=== PATIENT | female | born 1990 ===

== ENCOUNTER 2016-10-04 11:25 | Inpatient (IN) | payer MEDICAID, SELFPAY ==
[2016-10-04 11:44] VITALS: BMI 35.9
[2016-10-04] MEDS: Lactated Ringer's 1,000 ML IV SCH ×2 (12:15→18:02)
--- NOTE | 2016-10-04 12:30 | OBHP ---
Datetime: 10/04/2016 12:29 Admit Comment, IP Provider: Pt is a 26yo edc 10/18 by 12wk who was referred to by Dr. Baird of [facility] for admission for induction for Cholestasis of Preg. Dr. Larry thapa had reviewed pt's hx and labs with dr. maciel who advised for admission for induction today. Pt c/o hand and feet pruritus x2wks and labs from 10/01 show AST 75 and ALT 149. She denies h/a, scotomata, ruq pain, blurred va, n/v, ruq pain. OB hx sig for uti in preg an PMHX _ PSHX: DENIES MEDIC: PNV ALLERG: PNC- rahs SHX: DENIES etoh, illicit drugs or tobacco I: 38 wks Cholestasis of Preg P: admit for induction with cervidel cmp, cbc, ua, ldh induct procedure d/w pt _ fob as well as indic for . Datetime: 10/04/2016 12:15 IP Adm Impression: Term, intrauterine IP Admit Plan: Admit to unit; Initiate labor induction protocol Pelvic Type - PN: Adequate Extremities - PN: Normal Abdomen - PN: Normal Back - PN: Normal Lungs - PN: Normal Heart - PN: Normal Neurologic - PN: Normal HEENT - PN: Normal General - PN: Normal Presentation-Admit: Vertex FHR - Baseline A Provider: 140 Membranes, Provider: Intact Comments, ACOG Physical Exam: ri-ni bedside us: vtx presentation EGA AdmitDate IP: 38.0 Vital Signs Provider: Reviewed IP Chief Complaint: Other NICHD Variability Prov Fetus A: Minimal - Undetectable to <5bpm NICHD Accel Fetus A IP Provider: 15X15 FHR Category Provider Fetus A: Category I NICHD Decel Fetus A IP Provider: None Dilatation, Provider: 0 Effacement, Provider: 30 Station, Provider: -3 Genitourinary Exam: Normal
[2016-10-04 12:36] VITALS: BP 109/74; PULSE 96; RESP 18; O2SAT 100
[2016-10-04 13:04] LABS: BASO % 0.4 % (0.0-2.0); EOS # 0.1 K/uL (0.0-0.7); EOS % 1.5 % (0.0-4.0); HEMATOCRIT 36.8 % (34.0-47.0); LYMPH # 1.2 K/uL (1.0-4.3); LYMPH % 16.7 % (20.0-40.0); MEAN CELL VOLUME 81.8 fl (81.0-99.0); MEAN CORPUSCULAR HEMOGLOBIN 26.8 pg (27.0-31.0); MEAN CORPUSCULAR HGB CONC 32.8 g/dL (33.0-37.0); MEAN PLATELET VOLUME 10.5 fl (7.2-11.7); MONO # 0.7 K/uL (0.0-0.8); NEUT # 5.2 K/uL (1.8-7.0); NEUT % 71.4 % (50.0-75.0); NRBC % 0.1 % (0.0-0.0); RED CELL DISTRIBUTION WIDTH 16.4 % (11.5-14.5); WHITE BLOOD COUNT 7.3 K/uL (4.8-10.8)
[2016-10-04 13:13] LABS: ALKALINE PHOSPHATASE 242 U/L (38-126); ALT/SGPT 125 U/L (9-52); AST/SGOT 58 U/L (14-36); BILIRUBIN,TOTAL 0.5 mg/dl (0.2-1.3); BLOOD UREA NITROGEN 9 mg/dl (7-17); CARBON DIOXIDE 21 mmol/L (22-30); CHLORIDE 107 mmol/L (98-107); GFR AFRICAN-AMERICAN > 60; GLUCOSE,RANDOM 81 mg/dL (65-105); POTASSIUM 3.6 MMOL/L (3.6-5.0); SODIUM 137 mmol/l (132-148)
[2016-10-04 17:17] LABS: RBC URINE 2 /hpf (0-3); URINE BACTERIA FEW (<OCC); URINE BILIRUBIN NEGATIVE (NEGATIVE); URINE BLOOD NEGATIVE (NEGATIVE); URINE COLOR YELLOW (YELLOW); URINE GLUCOSE (UA) NEG (Normal); URINE KETONE NEGATIVE (NEGATIVE); URINE LEUKOCYTE ESTERASE MOD Leu/uL (Negative); URINE PROTEIN NEGATIVE (NEGATIVE); URINE UROBILINOGEN 0.2-1.0 mg/dL (0.2-1.0); WBC URINE 4 /hpf (0-5)
--- NOTE | 2016-10-05 08:30 | OBPN ---
Datetime: 10/05/2016 08:14 IP Progress Plan: Induction Contraction Comments Provider: q2-3w FHR - Baseline A Provider: 120 Presentation-Admit: Vertex IP Progress Note Comment: s: c/o painful ctx rated as 6/10; denies srom i: 38.1wk induction cholestasis of preg p: monitor ctxs continued plan of induction per dr mckeon. NICHD Accel Fetus A IP Provider: 15X15 FHR Category Provider Fetus A: Category I NICHD Variability Prov Fetus A: Moderate 6-25bpm Dilatation, Provider: 1 Effacement, Provider: 50 Station, Provider: -2 NICHD Decel Fetus A IP Provider: None Datetime: 10/04/2016 12:15 Membranes, Provider: Intact Vital Signs Provider: Reviewed
[2016-10-05] MEDS: Lactated Ringer's 1,000 ML IV SCH (12:51)
[2016-10-06] MEDS: Lactated Ringer's 1,000 ML IV SCH ×4 (11:07→19:06)
[2016-10-06] MEDS ORDERED: Oxytocin 30 units/LR 500ML 30 U/500 ML BAG IV ONE ×2 (11:19→17:55)
[2016-10-06] MEDS ORDERED: Nalbuphine 20 mg/ml Inj (1 ml) IVP PRN ×2 (11:19→20:42)
--- NOTE | 2016-10-06 16:44 | OBPN ---
Datetime: 10/06/2016 11:39 IP Progress Plan: Continue present management; Augmentation Contraction Comments Provider: irregular FHR - Baseline A Provider: 140s-150s IP Progress Note Comment: Start pitocin augmentation. Both MWB/FWB reassuring at this time. Vital Signs Provider: Reviewed; Within Normal Limits NICHD Accel Fetus A IP Provider: 15X15 FHR Category Provider Fetus A: Category I NICHD Variability Prov Fetus A: Moderate 6-25bpm Dilatation, Provider: 2 Effacement, Provider: 75 Station, Provider: -3 NICHD Decel Fetus A IP Provider: None
[2016-10-06] MEDS ORDERED: Gentamicin 80mg/50ml NS 80 MG/50 ML BAG IVPB ONE (17:00)
[2016-10-06] MEDS ORDERED: Morphine 1 mg/ml preservative-free Inj(Duramorph) ONE (17:25)
--- NOTE | 2016-10-06 17:26 | OBPN ---
Datetime: 10/06/2016 17:22 IP Progress Impression: Arrest of dilatation/descent; Non-reassuring heart rate IP Informed Consent Obtain: Section Delivery; Risks, Benefits and Alternatives Discussed IP Procedures: Sterile Vag Exam IP Progress Plan: Deliver- Section FHR - Baseline A Provider: 160s-170s IP Progress Note Comment: Pt with persistent tachycardia. No change in cervical dilation. Di scussed with patient options and recommended C/S for NRFHT. Discussed the R/B/A of surgery with dora ent and all patient questions answered. Specimen Preparation Assistant present. Vital Signs Provider: Reviewed; Within Normal Limits FHR Category Provider Fetus A: Category II NICHD Variability Prov Fetus A: Moderate 6-25bpm Dilatation, Provider: 2 Effacement, Provider: 75 Station, Provider: -2 NICHD Decel Fetus A IP Provider: None
[2016-10-06] MEDS ORDERED: Phenylephrine 10 mg/ml Inj ONE (17:55)
[2016-10-06] MEDS ORDERED: Naloxone 0.4 mg/ml Inj (Adult) IVP PRN ×2 (18:39→20:42)
[2016-10-06] MEDS ORDERED: DiphenhydrAMINE 50 mg/ml Inj IVP PRN ×2 (18:39→20:42)
[2016-10-06] MEDS ORDERED: Lactated Ringer's 1,000 ML IV SCH (20:42)
[2016-10-06] MEDS: Simethicone 80 mg Chewtab PO SCH (21:47)
[2016-10-06] MEDS ORDERED: Simethicone 80 mg Chewtab PO SCH (22:00)
[2016-10-07] MEDS: Simethicone 80 mg Chewtab PO SCH ×4 (04:10→22:18)
[2016-10-07 06:19] LABS: HEMATOCRIT 31.7 % (34.0-47.0); MEAN CELL VOLUME 82.1 fl (81.0-99.0); MEAN CORPUSCULAR HEMOGLOBIN 26.7 pg (27.0-31.0); MEAN CORPUSCULAR HGB CONC 32.5 g/dL (33.0-37.0); RED CELL DISTRIBUTION WIDTH 16.5 % (11.5-14.5); WHITE BLOOD COUNT 17.6 K/uL (4.8-10.8)
--- NOTE | 2016-10-07 08:35 | OBDS ---
DELIVERY PERSONNEL Delivery Doctor: Marnie Guerra MD Culinary Arts Instructor: Lizbeth Paige RN Anesthesiologist: Elton Edge MD MATERNAL INFORMATION Delivery Anesthesia: Spinal Medications in Delivery: 30 units pitocin in 500 m l LR Estimated Blood Loss (ml): 800 Placenta Cultured: Yes Maternal Complications: Premature Rupture of Membranes RN Comments: skin to skin initiatied in OR Provider Comments: Primary low flap transverse section. Patient delivered viable infant with Apgars of 9 and 9 at one and 5 minutes respectively. Normal u terus, normal tubes and ovaries bilaterally. EBL 800 mL Fluids 1800 mL lactated Ringer's Urine output 100 mL of clear urine at the end of procedure No complications Patient tolerated procedure well. LABOR SUMMARY EDC: 10/18/2016 00:00 No. Babies in Womb: 1 Attempted: No Labor Anesthesia: Intrathecal LABOR INFORMATION Reason for Induction: Other Reason for Induction Other: cholestasis Cervical Ripening Agents: Cervidil Other Ripening Agents: cervidil placed by dr Emeterio Chin @ 2300 Oxytocin: Augmentation Group B Beta Strep: Positive Antibiotics # of Doses: 3 Antibiotics Time of Last Dose: 1730 Steroids Given: None Reason Steroids Not Administered: Not Applicable MEMBRANES Membranes Rupture Method: Spontaneous Rupture of Membranes: 10/05/2016 18:20 Length of Rupture (hrs): 23.58 Amniotic Fluid Color: Light Meconium Amniotic Fluid Amount: Small Amniotic Fluid Odor: Normal STAGES OF LABOR Stage 3 hrs: 0 Stage 3 min: 1 VAGINAL DELIVERY Episiotomy: None Laceration Extension: N/A Laceration Type: None Sponge Count Correct: N/A CSECTION DELIVERY Primary Indication: Nonreassuring Status Secondary Indication: Other Other Secondary Indication: Failed Labor CSection Urgency: Non Elective CSection Incidence: Primary Labor: Labor Elective: Nonelective CSection Incision: Lower Uterine Transverse BABY A INFORMATION Delivery Date/Time: 10/06/2016 17:55 Method of Delivery: Born in Route : No : N/A Forceps: N/A Vacuum Extraction: N/A Shoulder Dystocia : No SHOULDER DYSTOCIA BABY A Infant Delivery Date/Time: 10/06/2016 17:55 PRESENTATION/POSITION BABY A Presentation: Cephalic Cephalic Presentation: Vertex Vertex Position: Left Occipital Anterior Breech Presentation: N/A PLACENTA INFORMATION BABY A Placenta Delivery Time : 10/06/2016 17:56 Placenta Method of Delivery: Manual Removal Placenta Status: Delivered SCORES BABY A Heart Rate 1 min: >100 bpm Resp Effort 1 min: Good Cry Reflex Irritability 1 min: Cough or Sneeze or Pulls Away Muscle Tone 1 min: Active Motion Color 1 min: Body [place], Extremities Blue SCORE 1 MIN: 9 Heart Rate 5 min: >100 bpm Resp Effort 5 min: Good Cry Reflex Irritability 5 min: Cough or Sneeze or Pulls Away Muscle Tone 5 min: Active Motion Color 5 min: Body [place], Extremities Blue SCORE 5 MIN: 9 INFANT INFORMATION BABY A Gestational Age at Delivery: 38.2 Gestational Status: Term Outcome : Liveborn Infant Condition : Stable Sex: Female IDENTIFICATION/MEDS BABY A ID Band Number: [id number] ID Band Location: Left Leg; Left Arm WEIGHT/LENGTH BABY A Birthweight (gms): 3080 Weight (lb): 6 Weight (oz): 13 CORD INFORMATION BABY A No. Cord Vessels: 3 Nuchal Cord : N/A Cord Blood Taken: Yes Infant Suction: Mouth; Nose ASSESSMENT BABY A Infant Complications: None Physical Findings at Delivery: Within Normal Limits Respirations: Appears Normal Authorization Nurse/ALS Called : No Care By: Dr Albrecht/Purvi Oglesby Transferred To: [facility]
--- NOTE | 2016-10-07 11:46 | OBPPN ---
Datetime: 10/07/2016 05:19 PP Pain Prov: Within normal limits PP Nausea Prov: Denies PP Flatus Prov: Yes PP BM Prov: No PP Breasts Prov: Normal PP Heart Prov: Normal PP Lungs Prov: Normal PP Abdomen/Uterus Prov: Normal PP Lochia Prov: Normal PP Vulva/Perineum Prov: Normal PP CVA Tenderness Prov: Normal PP Extremities Prov: Normal PP C/S Incision Prov: Normal PP Progress Prov: Normal PP Comments Phys Exam Prov: incision site: clean dry intact Fundus: firm, approx 2-3 cm above umbilicus +BS PP Impression Prov: Normal progression PP Plan Prov: Continue present management PP Progress Note Prov: 26 y/o s/p seen and examined at beside. No acute events overni ght. Pt reports moderate abdominal/pelvic pain controlled with medications. Has not been OOB yet. Linda ast feeding without difficulty. Tolerating clear liquid diet. +Flatus, negative BM. Denies fever/chil ls, nausea/vomiting, CP/SOB, Lightheadedness, calf pain. A: 26 y/o s/p POD#1 on 10/06. Pt afebrile, tolerating pain with medication, doing w ell on POD#1. P: -advance reg diet as tolerated -OOB/ambulation with caution -SCDs PRN -Percocet 5/325 mg 1-2 tablets PO Q6H if mod/severe pain -Ibuprofen 600mg 1 tab q6h po if mild pain -encourage /ambulation -Colace 100mg PO BID for constipation -Simethicone 80mg BID for gas Anticipate DC on October 09, 2016. Brayan Christianson MD PGY1 @ 5:28am The patient was seen with the resident I agree with the note, encourage ambulation, Motrin as need ed, regular diet IP PP Procedures: None Vital Signs Provider PP: Reviewed; Within Normal Limits
[2016-10-07] MEDS ORDERED: Oxycodone/Acetaminophen 5/325 mg Tab PO PRN (12:45)
[2016-10-07 15:54] VITALS: TEMP 98.7
[2016-10-07] MEDS: Oxycodone/Acetaminophen 5/325 mg Tab PO PRN (16:07)
[2016-10-08] MEDS: Simethicone 80 mg Chewtab PO SCH ×4 (05:22→22:33)
--- NOTE | 2016-10-08 10:06 | OBPPN ---
Datetime: 10/08/2016 06:34 PP Pain Prov: Within normal limits PP Nausea Prov: Denies PP Flatus Prov: Yes PP BM Prov: Yes PP Breasts Prov: Normal PP Heart Prov: Normal PP Lungs Prov: Normal PP Abdomen/Uterus Prov: Normal PP Lochia Prov: Normal PP Vulva/Perineum Prov: Normal PP CVA Tenderness Prov: Normal PP Extremities Prov: Normal PP C/S Incision Prov: Normal PP Progress Prov: Normal PP Comments Phys Exam Prov: abd: incision site is dry and intact. Minor dried blood noted otherwise unremarkable. -fundus is firm at level of umbilicus, minor tenderness to palpation ext: NT, no edema/erythema, homans neg b/l PP Impression Prov: Normal progression PP Plan Prov: Continue present management PP Progress Note Prov: 26 y/o s/p on 10/06. pt seen and examined at bedside this morn ing. No acute events overnight. Pt reports tolerating pain with mediciation. Reports improvment in bl eeding. OOB/ambulating without difficulty. Tolerating PO intake with ease. +BM yesterday and +flatus. Breast and bottle feeding but is attempting breast feeding more often. No other complaints. Denies f /c/n/v/cp/sob, urinary symptoms, numbness/tingling, calf pain. A/P: 26 y/o s/p POD#2. Pt is afebrile, tolerating pain with medications and doing w ell on POD#2. -continue current management -OOB/ambulation with caution -encouraged further breast feeding -reg diet -antcipated d/c 10/09 Brayan Christianson MD PGY1 @ 6:40am [facility] ADDENDUM: pt seen _ exmined by me. she c/o feeling like she has to pass more gas and poop but is unable p: rx senokot s. rx bacid IP PP Procedures: None Vital Signs Provider PP: Reviewed; Within Normal Limits
[2016-10-08] MEDS: Lactobacillus Acidophilus 500 MU Cap PO SCH ×2 (10:56→16:36)
[2016-10-08] MEDS ORDERED: Docusate-Senna 50 mg-8.6 mg Tab PO SCH (13:00)
[2016-10-08] MEDS: Oxycodone/Acetaminophen 5/325 mg Tab PO PRN (13:07)
[2016-10-09] MEDS: Simethicone 80 mg Chewtab PO SCH ×2 (05:06→15:37)
[2016-10-09] MEDS ORDERED: Measles, Mumps, and Rubella 0.5 ML VIAL SC ONE ×2 (09:00)
[2016-10-09] MEDS: Lactobacillus Acidophilus 500 MU Cap PO SCH (09:40)
--- NOTE | 2016-10-09 11:30 | OBPPN ---
Datetime: 10/09/2016 11:27 PP Pain Prov: Within normal limits PP Nausea Prov: Denies PP Flatus Prov: Yes PP Breasts Prov: Not Done PP Heart Prov: Normal PP Lungs Prov: Normal PP Abdomen/Uterus Prov: Normal PP Lochia Prov: Not Done PP Vulva/Perineum Prov: Not Done PP CVA Tenderness Prov: Normal PP Extremities Prov: Normal PP Impression Prov: Normal progression PP Plan Prov: Discharge PP Progress Note Prov: Patient doing well ambulating tolerating diet pain well-controlled Vital signs stable afebrile Uterus firm below the umbilicus Incision clean dry and intact Extremities no Homans Postoperative day #3 Discharged home, Motrin as needed, no heavy lifting, nothing per vagina, [facility] 1 week Vital Signs Provider PP: Reviewed
--- NOTE | 2016-10-09 11:30 | OBDCSUM ---
Datetime: 10/09/2016 08:42 Discharged to, Provider: Home Follow up at, Provider: ob Disch Instr Activity: May be up to bathroom; May be up for meals; May Shower Disch Instr Diet: Regular Discharge Instructions, Provider: Routine instructions given Discharge Diagnosis, Provider: Term Delivered Discharge Time: 10/09/2016 08:43 Follow up in weeks, Provider: 4-6 weeks Disch Referrals: None Contraception discussed, Prov: Yes Disch Activity Restrictions: Minimize stair-climbing; No sexual activity; Nothing in vagina - Interc ourse, tampons, douche Discharge Comment, Provider: Follow-up in 1 week should clear for discharge Contraception after Delivery: Undecided
[2016-10-10] MEDS ORDERED: Measles, Mumps, and Rubella 0.5 ML VIAL SC ONE (09:00)
== END 2016-10-09 19:30 | disposition home or self-care (01) | DRG 370 ==
LOC: H.EROB2 11:25 → H.L&D 12:10 → H.OB/GYN 10-06 21:29
PROVIDERS: ADMIT Obstetrics & Gynecology; ATTEND Obstetrics & Gynecology
PROC: 4A1HXCZ Monitoring of Products of Conception, Cardiac Rate, External Approach (ICD-10-PCS; 2016-10-04)
PROC: 10D00Z1 Extraction of Products of Conception, Low, Open Approach (ICD-10-PCS; principal; 2016-10-06)
DX: O76 Abnormality in fetal heart rate and rhythm complicating labor and delivery (principal); O26.62 Liver and biliary tract disorders in childbirth; K83.1 Obstruction of bile duct; O42.92 Full-term premature rupture of membranes, unspecified as to length of time between rupture and onset of labor; Z37.0 Single live birth; O62.0 Primary inadequate contractions; Z3A.38 38 weeks gestation of pregnancy